=== PATIENT | male | born 1955 | race Caucasian/White ===

== ENCOUNTER → 2016-12-08 | Outpatient (CLI) | payer SELFPAY ==
--- NOTE | 2016-12-08 16:33 | CT ---
EXAMINATION TYPE: CT heart w calcium score DATE OF EXAM: 12/08/2016 4:27 PM COMPARISON: NONE HISTORY: Screening for cardiovascular disorder. 213.9 CT DLP: 55.40 mGycm Automated exposure control for dose reduction was used. CT CALCIUM SCORING Coronary calcium is a marker for plaque (fatty deposits) in a blood vessel or atherosclerosis (harden ing of the arteries). The presence and amount of calcium detected in a coronary artery by the CT sca n, indicates the presence and amount of atherosclerotic plaque. These calcium deposits appear years before the development of heart disease symptoms such as chest pain and shortness of breath. A calcium score is computed for each of the coronary arteries based upon the volume and density of th e calcium deposits. This can be referred to as your calcified plaque burden. It does not correspond directly to the percentage of narrowing in the artery but does correlate with the severity of the un derlying coronary atherosclerosis. PROCEDURE TECHNIQUE - Prospective Gating was used. Slice thickness: 3mm. Density threshold (HU): 130, Pixel threshold: 3, Algorithm: discrete. RESULTS Region: LM Calcium Score ([place]): 0 Volume (mm3): 0 Mass (g): 0 Region: RCA Calcium Score ([place]): 0 Volume (mm3): 0 Mass (g): 0 Region: LAD Calcium Score ([place]): 0 Volume (mm3): 0 Mass (g): 0 Region: CX Calcium Score ([place]): 0 Volume (mm3): 0 Mass (g): 0 Total: Calcium Score ([place]): 0 Volume (mm3): 0 Mass (g): 0 TOTAL CALCIUM SCORE: 0 OTHER: No coronary artery calcifications are identified. Mediastinum is unremarkable. The visualized portions of the lungs are within normal limits. IMPRESSION: Calcium Score: 0 Implication: No identifiable plaque. Risk of Coronary Artery Disease: Very low generally less than 5%
== END ==
LOC: RADCTMAIN 15:56
PROVIDERS: ATTEND Internal Medicine Interventional Cardiology
DX: Z53.9 Procedure and treatment not carried out, unspecified reason (principal)

== ENCOUNTER 2017-03-29 07:53 | Day surgery (SDC) | payer BC ==
[2017-03-25 14:10] VITALS: BMI 27.6
[~2017-03-29 07:53] MED LIST: LACTATED RINGERS 1,000 ML IV SCH
[2017-03-29 08:13] VITALS: RESP 18; TEMP 97.9
[2017-03-29] MEDS ORDERED: LIDOCAINE 1% 20 ML VIAL (10MG/ML) FOR IV START INTRADERMA ONE (08:21)
[2017-03-29] MEDS ORDERED: LIDOCAINE 1% INJ 10MG/ML (20 ML MDV) ONE (09:06)
[2017-03-29] MEDS ORDERED: PROPOFOL 10 MG/ML 20 ML VIAL IV ONE (09:06)
--- NOTE | 2017-03-29 09:30 | P.PCN ---
Date of Procedure: 03/29/17 Preoperative Diagnosis: Postoperative Diagnosis: Procedure(s) Performed: Procedure: Total colonoscopy. Preoperative diagnosis: Screening for neoplasia. Postoperative diagnosis: Exam within normal limits. Preparation: HalfLytely prep. Sedation: Was provided by anesthesia. Brief clinical history: The patient is a 61-year-old male who is referred for this evaluation for screening for neoplasia because of history of polyps. His last exam was more than 10 years ago. The patient has no abdominal complaints, bleeding or anemia. Procedure: With the patient on his left lateral decubitus position and after informed consent and adequate sedation, the perianal area was inspected and it did not show any fissures or fistulas. There were no masses felt on digital rectal examination. The Olympus CFQ 160L video colonoscope was then inserted in the rectum in the usual fashion and advanced to the cecum. The mucosa appeared healthy. No polyps or tumors were seen. No obvious diverticular disease or other pathology. I retroflexed the endoscope in the rectum before the endoscope was withdrawn. The patient tolerated the procedure well. Plan: The patient was reassured. He will follow up with you as planned and I recommended a repeat exam in 5 years. Implants: Indications for Procedure: Operative Findings: Description of Procedure:
[2017-03-29 09:48] VITALS: BP 135/88; PULSE 63
== END 2017-03-29 10:07 | disposition home or self-care (01) ==
LOC: ORWHC2ENDO 07:53
DX: Z12.11 Encounter for screening for malignant neoplasm of colon (principal); Z86.010 Personal history of colon polyps; I10 Essential (primary) hypertension; Z79.82 Long term (current) use of aspirin; Z88.0 Allergy status to penicillin; Z88.2 Allergy status to sulfonamides; Z88.8 Allergy status to other drugs, medicaments and biological substances
CPT/HCPCS: J2001; J2704; G0105

== ENCOUNTER → 2017-11-08 | Outpatient (CLI) | payer BC ==
--- NOTE | 2017-11-08 16:55 | CONS ---
CONSULTATION REASON FOR CONSULTATION: Sleep apnea. This is a pleasant 62-year-old male patient with established diagnosis of obstructive sleep apnea who has been admitted on CPAP therapy. The patient has been a long-term CPAP user. He was originally diagnosed having obstructive sleep apnea back in 2007, when he was found to have an AHI of 19 and he was offered CPAP therapy. Subsequently he underwent a re-titration. His last evaluation here in the office was with Dr. Thompson in July of 2016. At that time the patient was using a ResMed AirSense CPAP unit at a pressure of 9 cm of water. The patient is coming in due to concerns about his sleep apnea being suboptimally treated. He has gained only 6 to 7 pounds since his last evaluation back in 2015. At times he leaks around his mask and there is a hissing noise that goes around his full-face mask, and at times he snores while on treatment. No other new-onset medical problems or comorbidities over these past few years. The patient is sleeping a good 7 to 8 hours every night. He goes to bed around 11, wakes up at 6 a.m. in the morning, and he is well refreshed and alert during the day. No nighttime shortness of breath, chest pain or angina. No nighttime palpitations. He has no symptoms of restlessness in his lower extremities; however, he was noted to have increased periodic limb movements on his previous sleep study. Nevertheless, these periodic limb movements have not led to any significant arousals. His current [place] score is 11. His weight is up by only 5-6 pounds. He sleeps in different body positions. He tries to sleep on his side if possible. No other complaints otherwise for now. PAST MEDICAL HISTORY: 1. Obstructive sleep apnea. 2. Periodic limb movements without symptoms of restless legs syndrome. PAST SURGICAL HISTORY: 1. Hernia repair. 2. Arthroscopy of the knee. DRUG ALLERGIES: 1. PENICILLIN. 2. SULFA. MEDICATIONS: Aspirin. SOCIAL HISTORY: Nonsmoker. No history of alcohol. No history of IV drugs. FAMILY HISTORY: Negative for sleep apnea. REVIEW OF SYSTEMS: Twelve-point review of systems was done. Positive findings are mentioned above in the history of present illness. No insomnia. No nocturia. No sleepwalking or sleeptalking. No dry mouth. No anxiety or panic attacks. No claustrophobia. No sexual dysfunction. No history of depression. PHYSICAL EXAMINATION: BP is 142/76, pulse 81, respirations 16, temperature 97.5, saturation 98% on room air. [place] score is 11. Neck size 16.5. Weight is 229 and height is 74 inches. GENERAL APPEARANCE: Calm, comfortable. Head is atraumatic, normocephalic. NECK: Supple. There is no JVD. No goiter or neck masses. Mallampati class II to III. Lungs are clear to auscultation. HEART: Heart sounds are regular rate and rhythm. Normal S1, S2. No S3, S4. No murmurs. ABDOMEN: Soft, nontender. No organomegaly. EXTREMITIES: No edema. No cyanosis or clubbing. NEUROLOGIC: The patient is alert and oriented x3. No focal neurological deficits. PSYCHIATRIC: The patient has appropriate mood and affect. SKIN: Negative for any wounds or ulceration. IMPRESSION: 1. Obstructive sleep apnea, currently on CPAP pressure of 9 cm of water. The patient has a baseline AHI of 19 consistent with moderate to severe disease, diagnosed back in 2007. 2. Periodic limb movements not causing any nocturnal arousals. PLAN: I checked the patient's CPAP machine. I checked his compliancy. I noted that the patient has been averaging around 7.8 hours of CPAP use per night. His leak factor is 23 L/minute and he is using an AirFit F10 full-face mask. His AHI while on treatment is down to 3.4. I think his treatment is successful for the most part. Nevertheless, I have recommended doing some adjustments. I added an EPR of 3, which will make his treatment much more comfortable. At the same time, I offered him an AirFit F20 full- face mask, which should eliminate the leaks occurring around his full-face mask. The mask was trialed today in the office and he opted to go with a medium-sized AirFit F20 full-face mask. He was encouraged to lose weight. Sleep hygiene measures are appropriate. No other comorbid issues. I will see him back in a year's time, earlier if needed. MMODL / IJN: [id number] /
== END | disposition home or self-care (01) ==
LOC: SLEEP 14:30
PROVIDERS: ATTEND Internal Medicine Critical Care Medicine
DX: G47.33 Obstructive sleep apnea (adult) (pediatric) (principal); G47.61 Periodic limb movement disorder; Z79.82 Long term (current) use of aspirin; Z88.0 Allergy status to penicillin; Z88.2 Allergy status to sulfonamides; Z99.89 Dependence on other enabling machines and devices
CPT/HCPCS: 99211

== ENCOUNTER → 2018-02-07 | Outpatient (CLI) | payer BC ==
--- NOTE | 2018-02-07 20:19 | PN ---
PROGRESS NOTE Fernando is 62, coming in for a CPAP compliancy. The patient was diagnosed having symptomatic obstructive sleep apnea which was with an AHI of 19 and the patient was being treated with a CPAP pressure of 9 cm of water. On today's evaluation, the patient was bringing in his new CPAP machine for me to check. The CPAP machine is set at a pressure of 9. The patient has been using his CPAP every night. His compliancy for more than 4 hours is 100%. His AHI while on treatment is down to 4.9. His average CPAP use around 7.5 hours per night. Leak factor 13 L/minute. At times it has been noted that he is still snoring and he has been stopped in breathing as reported by the ; however, this has not been confirmed by his CPAP compliance data. I do not see any evidence of any central apneas. There may be some residual obstructive events, yet his overall AHI is less than 5. No recent weight gain since his titration. No excessive alcohol consumption. No changes in medication. No other complaints otherwise for now. The patient reports improvement in his sleep quality in general. He is waking up much more alert and refreshed during the day. His BP 149/69, pulse 89, respirations 16, temperature 97.8. Weight is 215. Height is 6 feet 1 inch. [place] score is 7. BMI is 28.3. GENERAL APPEARANCE: Calm, comfortable. Head is atraumatic, normocephalic. Neck is supple. There is no JVD. There is no goiter or neck mass. LUNGS: Clear to auscultation. Heart sounds are regular rate and rhythm. Normal S1, S2. No S3. No murmurs. Abdomen is soft, nontender. No organomegaly. EXTREMITIES: No edema. No cyanosis or clubbing. NEUROLOGIC: Alert and oriented x3. There are no focal neurological deficits. PSYCHIATRY: Negative for anxiety or depression. IMPRESSION: Obstructive sleep apnea, apnea-hypopnea index of 19, currently on CPAP at a pressure of 9 cm of water. Clinically improved. There is some minimal residual obstructive obstructive apneas with an AHI of 4.9 while on treatment and this has been concerning to the patient and his . Clinically, however, improved. PLAN: 1. Switch this patient to an APAP with a minimum pressure of 4, a maximum pressure of 12. 2. Continue the same mask interface. 3. Encourage weight loss. 4. Treatment in general is successful and the patient will be seen back in a year's time in followup. MMODL / IJN: [id number] /
== END | disposition home or self-care (01) ==
LOC: SLEEP 13:12
PROVIDERS: ATTEND Internal Medicine Critical Care Medicine
DX: G47.33 Obstructive sleep apnea (adult) (pediatric) (principal); Z99.89 Dependence on other enabling machines and devices

== ENCOUNTER → 2018-12-19 | Outpatient (CLI) | payer BC ==
--- NOTE | 2018-12-19 16:15 | PN ---
PROGRESS NOTE This is a 63-year-old male patient coming in for a CPAP compliancy check. The patient has been diagnosed having mild obstructive sleep apnea with an AHI of 19 and currently he is on an APAP with a minimum pressure of 4, maximum pressure of 12. Note that over the past one year the patient had a loss in the family of his mother and [id number]. He had been traveling back and forth to [place] and he has been under a significant amount of stress. He has gained around 20 pounds. His weight is up to 234. Nevertheless, his CPAP therapy remains successful, such that he has been maintained on an APAP mode. I noted that his average pressure is up to 10 cm of water and his P90 pressure is at 10. His CPAP use for more than 4 hours is 100%. Average CPAP use is around 8 hours per night. Leak is 11 L/minute. AHI is down to 2.9. He continues to use the AirFit F20 full-face mask. He has no complaints otherwise. Treatment remains successful. His [place] score is 7. REVIEW OF SYSTEMS: Fourteen-point review of systems was done and the positive findings are all mentioned above in the history of present illness. PHYSICAL EXAMINATION: VITAL SIGNS: BP is 150/90, pulse 72, respirations 16, temperature 98.6, saturation 98% on room air. Weight 234. Height is 6 feet 1 inch, BMI 30.4. GENERAL APPEARANCE: Calm, comfortable. Head is atraumatic, normocephalic. NECK: Supple. No JVD. No goiter or neck masses. Mallampati class IV. LUNGS: Clear to auscultation. HEART: Heart sounds are regular rate and rhythm. Normal S1, S2. No S3, S4. No murmurs. ABDOMEN: Soft, nontender. No organomegaly. EXTREMITIES: No edema. No cyanosis or clubbing. Neurologically the patient is alert and oriented x3. There is no focal neurological deficit. IMPRESSION: 1. Obstructive sleep apnea, moderate to severe, apnea/hypopnea index of 19, currently on an APAP, minimum of 4, maximum of 12. 2. Obesity with interval weight gain. Current BMI is up to 30.8. 3. Hypersomnia, stable, recovered. [place] score is 7. PLAN: 1. Continue APAP at the same level of pressure. 2. Encourage weight loss. 3. Continue using AirFit F20 full-face mask. 4. Lisinopril for blood pressure control. 5. See me back in a year's time, earlier if needed. MMODL / IJN: [id number] /
== END | disposition home or self-care (01) ==
LOC: SLEEP 13:15
PROVIDERS: ATTEND Internal Medicine Critical Care Medicine
DX: G47.33 Obstructive sleep apnea (adult) (pediatric) (principal); E66.9 Obesity, unspecified; Z68.30 Body mass index [BMI] 30.0-30.9, adult; Z99.89 Dependence on other enabling machines and devices

== ENCOUNTER → 2022-05-18 | Outpatient (CLI) | payer MEDICARE, BC ==
[2022-05-18 10:53] LABS: Basophils # (A) 0.1 k/uL (0-0.2); Basophils % (A) 1 %; Eosinophils # (A) 0.4 k/uL (0-0.7); Eosinophils % (A) 6 %; HCT 47.4 % (39.0-53.0); HGB 15.3 gm/dL (13.0-17.5); Lymphocytes # (A) 1.6 k/uL (1.0-4.8); Lymphocytes % (A) 29 %; MCH 30.8 pg (25.0-35.0); MCHC 32.2 g/dL (31.0-37.0); MCV 95.6 fL (80.0-100.0); Mean Platelet Volume 8.2; Monocytes # (A) 0.4 k/uL (0-1.0); Monocytes % (A) 8 %; Neutrophils % (A) 54 %; Platelet Count 223 k/uL (150-450); RBC 4.96 m/uL (4.30-5.90); RDW 12.1 % (11.5-15.5); WBC 5.6 k/uL (3.8-10.6)
[2022-05-18 11:02] LABS: ALT 31 U/L (4-49); AST 34 U/L (17-59); African American GFR (CKD) >90 (>60 ml/min/1.73 sqM); Albumin/Globulin Ratio 1.3; Alkaline Phosphatase 76 U/L (38-126); Anion Gap 12 mmol/L; Blood Urea Nitrogen 13 mg/dL (9-20); Calcium 8.9 mg/dL (8.4-10.2); Carbon Dioxide 26 mmol/L (22-30); Chloride 100 mmol/L (98-107); Glucose 95 mg/dL (74-99); Non-African American GFR(CKD) >90 (>60 ml/min/1.73 sqM); Potassium 4.8 mmol/L (3.5-5.1); Sodium 138 mmol/L (137-145); Total Bilirubin 0.7 mg/dL (0.2-1.3)
[2022-05-19 02:09] LABS: Chol/HDL Ratio 4.96 Ratio; LDL Cholesterol,Calculated 115.7 mg/dL (0.0-131.0)
== END | disposition home or self-care (01) ==
LOC: LABWHC1 09:08
PROVIDERS: ATTEND Pediatrics
DX: Z13.220 Encounter for screening for lipoid disorders (principal); I10 Essential (primary) hypertension; Z12.5 Encounter for screening for malignant neoplasm of prostate
CPT/HCPCS: 36415; 80053; 80061; 84153; 85025

== ENCOUNTER → 2023-06-09 | Outpatient (CLI) | payer MEDICARE, BC ==
--- NOTE | 2023-06-09 10:55 | FL ---
EXAMINATION TYPE: FL barium swallow DATE OF EXAM: 06/09/2023 10:29 AM COMPARISON: 07/24/2015. CLINICAL INDICATION:Male, 68 years old with history of R13.19 OTHER DYSPHAGIA; TECHNIQUE: The procedure was explained and patient history elicited. All patient questions were ans wered prior to start of procedure. Multiple spot fluoroscopic images of the esophagus were obtained a fter the oral ingestion of effervescent crystals and liquid barium as the contrast agent. Fluoroscopic time: 13 seconds Fluoroscopic images: 0 Radiographs taken: 60 DAP: [id number] mGym2 FINDINGS: The esophagus demonstrates normal primary and secondary peristalsis. The esophageal mucosa is smooth without evidence of focal stricture, ulceration, or abnormal outpouching. No gastroesophageal reflu x disease was identified. There may be minimal degenerative contractions present. IMPRESSION: There may be minimal esophageal dysmotility. No evidence for aspiration. Consider speech pathology ev aluation for patient's trouble swallowing solid foods in his pharynx.
== END | disposition home or self-care (01) ==
LOC: RADUSWWP 09:44
PROVIDERS: ATTEND Otolaryngology
DX: R13.19 Other dysphagia (principal)
CPT/HCPCS: 74220

== ENCOUNTER → 2023-06-14 | Outpatient (CLI) | payer MEDICARE, BC ==
--- NOTE | 2023-06-14 14:56 | FL ---
EXAMINATION TYPE: FL barium swallow w video DATE OF EXAM: 06/14/2023 CLINICAL HISTORY: 68-year-old male R13.13, pharyngeal phase dysphagia. Food sticking in the back of t he throat. TECHNIQUE: Deglutition study is performed utilizing thin liquid barium, barium thick pudding, and ba rium coated cracker. COMPARISON: None. Total fluoroscopy time: 1 minute 48 seconds. DOSE AREA PRODUCT (DAP) UGY*M,MGY*CM: 10 Total images: None. Real-time fluoroscopy support was provided to speech pathology. FINDINGS: The oral and pharyngeal phases show satisfactory initiation and propagation with all modalities teste d. Normal mastication is seen with solid modalities tested. There is no evidence of penetration or aspiration with any modality tested. No significant pharyngeal residue was appreciated. Additional A P imaging of the thoracic esophagus shows some slowed clearance of thicker consistencies. IMPRESSION: Normal deglutition study. Please refer to speech therapist notes for further details if necessary. There may be some underlying esophageal dysmotility with thicker consistencies. If clinically indicat ed, a conventional esophagram could be considered.
== END | disposition home or self-care (01) ==
LOC: RADFLMAIN 11:12
PROVIDERS: ATTEND Otolaryngology
DX: R13.13 Dysphagia, pharyngeal phase (principal)
CPT/HCPCS: 74230

== ENCOUNTER → 2023-06-24 | Outpatient (CLI) | payer MEDICARE, BC ==
[2023-06-24 16:04] LABS: ALT 47 U/L (10-49); AST 25 U/L (14-35); Albumin 4.5 g/dL (3.8-4.9); Alkaline Phosphatase 80 U/L (41-126); BUN/Creat Ratio 13.78 Ratio (12.00-20.00); Blood Urea Nitrogen 12.4 mg/dL (9.0-27.0); Calcium 10.2 mg/dL (8.7-10.3); Carbon Dioxide 28.9 mmol/L (21.6-31.8); Chloride 105 mmol/L (96-109); Chol/HDL Ratio 4.26 Ratio; Globulin 2.5 g/dL (1.6-3.3); Glucose 106 mg/dL (70-110); LDL Cholesterol,Calculated 150.5 mg/dL (0.0-131.0); Potassium 5.4 mmol/L (3.5-5.5); Sodium 140 mmol/L (135-145); Total Bilirubin 0.8 mg/dL (0.3-1.2)
[2023-06-24 16:09] LABS: Basophils # (A) 0.14 X 10*3/uL (0.00-0.10); Basophils % (A) 1.8 %; Eosinophils % (A) 6.5 %; HCT 48.6 % (39.6-50.0); Lymphocytes % (A) 24.9 %; MCH 31.5 pg (27.0-32.0); MCHC 32.9 g/dL (32.0-37.0); MCV 95.7 FL (80.0-97.0); Mean Platelet Volume 10.1 FL (9.5-12.2); Monocytes % (A) 10.5 %; NRBC Per 100 WBC 0 X 10*3/uL (0.00-0.01); Neutrophils # (A) 4.25 X 10*3/uL (1.80-7.70); Neutrophils % (A) 55.6 %; Platelet Count 239 X 10*3/uL (140-440); RBC 5.08 X 10*6/uL (4.40-5.60); RDW 13.1 % (11.5-14.5); WBC 7.64 X 10*3/uL (4.50-10.00)
== END | disposition home or self-care (01) ==
LOC: LABWHC1 08:14
PROVIDERS: ATTEND Pediatrics
DX: I10 Essential (primary) hypertension (principal)
CPT/HCPCS: 36415; 80053; 80061; 85025

== ENCOUNTER → 2023-07-11 | Outpatient (CLI) | payer MEDICARE, BC | END | disposition home or self-care (01) | LOC: RADUSWWP 08:47 | PROVIDERS: ATTEND Otolaryngology | DX: Z53.9 Procedure and treatment not carried out, unspecified reason (principal) ==

== ENCOUNTER → 2024-06-19 | Outpatient (CLI) | payer MEDICARE, BC ==
[2024-06-19 10:12] LABS: Basophils % (A) 1.5 %; Eosinophils # (A) 0.45 X 10*3/uL (0.04-0.35); Eosinophils % (A) 6.7 %; HCT 46.7 % (39.6-50.0); HGB 15.7 g/dL (13.0-17.0); Lymphocytes # (A) 1.78 X 10*3/uL (0.90-5.00); Lymphocytes % (A) 26.6 %; MCHC 33.6 g/dL (32.0-37.0); MCV 95.1 FL (80.0-97.0); Mean Platelet Volume 10.2 FL (9.5-12.2); Monocytes # (A) 0.68 X 10*3/uL (0.20-1.00); Monocytes % (A) 10.2 %; NRBC Per 100 WBC 0 X 10*3/uL (0.00-0.01); Neutrophils # (A) 3.65 X 10*3/uL (1.80-7.70); Neutrophils % (A) 54.7 %; Platelet Count 248 X 10*3/uL (140-440); RBC 4.91 X 10*6/uL (4.40-5.60); RDW 12.9 % (11.5-14.5); WBC 6.68 X 10*3/uL (4.50-10.00)
[2024-06-19 10:21] LABS: ALT 22 U/L (10-49); AST 23 U/L (14-35); Albumin 4.4 g/dL (3.8-4.9); Albumin/Globulin Ratio 1.76 Ratio (1.60-3.17); Alkaline Phosphatase 92 U/L (41-126); BUN/Creat Ratio 15.44 Ratio (12.00-20.00); Blood Urea Nitrogen 13.9 mg/dL (9.0-27.0); Calcium 9.5 mg/dL (8.7-10.3); Carbon Dioxide 28.6 mmol/L (21.6-31.8); Chloride 104 mmol/L (96-109); Chol/HDL Ratio 4.27 Ratio; Globulin 2.5 g/dL (1.6-3.3); Glucose 105 mg/dL (70-110); LDL Cholesterol,Calculated 141.4 mg/dL (0.0-131.0); Potassium 4.6 mmol/L (3.5-5.5); Sodium 140 mmol/L (135-145); Total Bilirubin 0.6 mg/dL (0.3-1.2); Total Protein 6.9 g/dL (6.2-8.2); VLDL Calculation 18.74 mg/dL (5.00-40.00)
== END | disposition home or self-care (01) ==
LOC: LABWHC1 07:13
PROVIDERS: ATTEND Pediatrics
DX: I10 Essential (primary) hypertension (principal); R73.9 Hyperglycemia, unspecified; N40.1 Benign prostatic hyperplasia with lower urinary tract symptoms
CPT/HCPCS: 36415; 80053; 80061; 83036; 84153; 85025